=== PATIENT | female | born 1965 | race Asian ===

== ENCOUNTER 2016-09-01 06:34 | Day surgery (SDC) | payer OTHER ==
[2016-08-27 19:34] VITALS: BMI 19.9
--- NOTE | 2016-09-01 08:09 | HP ---
Admitting History and Physical - Admission Chief Complaint: Elevated tumor markers History of Present Illness: 51 yo Para 0, with abnormal sonogram associated with elevated tumor markers, is Pre op for D&C Hysteroscopy. History Source: Patient Limitations to Obtaining History: No Limitations - Past Medical History ...LMP: 05/31/13 ...: No ...Para: 0 - Past Surgical History Past Surgical History: Yes: None - Smoking History Smoking history: Never smoked - Alcohol/Substance Use Hx Alcohol Use: No History of Substance Use: reports: None - Social History Usual Living Arrangement: Yes: Alone History of Recent Travel: No Home Medications - Allergies Allergies/Adverse Reactions: Allergies Allergy/AdvReac Type Severity Reaction Status Date / Time No Known Allergies Allergy Verified 09/01/16 07:23 - Home Medications Home Medications: Ambulatory Orders Cholecalciferol (Vitamin D3) [Vitamin D3] 2,000 unit PO DAILY 08/27/16 Multivit-Min/Iron Fum/Folic AC [Jxvza-Ytvraau-Ujrjgdxw Tablet] 1 each PO DAILY 08/27/16 Family Disease History - Family Disease History Family History: Unremarkable Review of Systems - Review of Systems Constitutional: reports: No Symptoms Eyes: reports: No Symptoms HENT: reports: No Symptoms Neck: reports: No Symptoms Cardiovascular: reports: No Symptoms Respiratory: reports: No Symptoms Gastrointestinal: reports: No Symptoms Genitourinary: reports: No Symptoms Breasts: reports: No Symptoms Reported Musculoskeletal: reports: No Symptoms Integumentary: reports: No Symptoms Neurological: reports: No Symptoms Endocrine: reports: No Symptoms Hematology/Lymphatic: reports: No Symptoms Psychiatric: reports: No Symptoms Pain Intensity: 0 Physical Examination Vital Signs: Vital Signs Temperature 97.4 F L 09/01/16 07:21 Pulse Rate 73 09/01/16 07:21 Respiratory Rate 18 09/01/16 07:21 Blood Pressure 145/93 09/01/16 07:21 O2 Sat by Pulse Oximetry (%) 100 09/01/16 07:22 Constitutional: Yes: Well Nourished Eyes: Yes: Conjunctiva Clear HENT: Yes: Atraumatic Neck: Yes: Supple, Trachea Midline Cardiovascular: Yes: Regular Rate and Rhythm Respiratory: Yes: Regular, CTA Bilaterally Gastrointestinal: Yes: Normal Bowel Sounds ...Rectal Exam: Yes: WNL Renal/: Yes: WNL Breast(s): Yes: WNL Musculoskeletal: Yes: WNL Neurological: Yes: Alert, Oriented ...Motor Strength: WNL Psychiatric: Yes: Alert, Oriented Problem List - Problems (1) Screening for malignant neoplasm Code(s): Z12.9 - ENCOUNTER FOR SCREENING FOR MALIGNANT NEOPLASM, SITE UNSP Assessment/Plan Abnormal sonogram Elevated tumor markers R/O endometrial Polyp R/O endometrial carcinoma Pre op for D&C Hysteroscopy Consent signed Anesthesia to see patient
--- NOTE | 2016-09-01 08:10 | OP ---
Operative Note - Note: Operative Date: 09/01/16 Pre-Operative Diagnosis: Endometrial polyp Operation: D&C Hysteroscopy Findings: No mass Post-Operative Diagnosis: Same as Pre-op Surgeon: rOly Engel Anesthesia: General Estimated Blood Loss (mls): 5 Operative Report Dictated: Yes
[2016-09-01] MEDS ORDERED: DEXAMETHASONE SOD PHOSPHATE 4 MG/1 ML VIAL ONE (08:13)
[2016-09-01] MEDS ORDERED: KETOROLAC TROMETHAMINE 30 MG/1 ML VIAL ONE (08:13)
[2016-09-01] MEDS ORDERED: ONDANSETRON 4 MG/2 ML VIAL ONE (08:13)
[2016-09-01] MEDS ORDERED: PROPOFOL 20 ML ONE (08:14)
[2016-09-01] MEDS ORDERED: MIDAZOLAM HCL 2 MG/2 ML SINGLE DOSE VIAL ONE ×2 (08:14)
[2016-09-01] MEDS ORDERED: oxyCODONE HCL 5 MG TABLET PO PRN (08:57)
[2016-09-01] MEDS ORDERED: ONDANSETRON 4 MG/2 ML VIAL IVPUSH PRN (08:57)
[2016-09-01] MEDS ORDERED: PROMETHAZINE HCL 25 MG/1 ML VIAL IVPUSH PRN (08:57)
[2016-09-01 09:46] VITALS: TEMP 97.8
[2016-09-01 12:14] VITALS: BP 137/79; PULSE 70
--- NOTE | 2016-09-02 08:33 | OP ---
DATE OF OPERATION: 09/01/2016 PREOPERATIVE DIAGNOSIS: Abnormal sonogram, elevated tumor markers, rule out endometrial polyp, rule out endometrial carcinoma. POSTOPERATIVE DIAGNOSIS: Rule out endometrial polyp. SURGEON: Orly Engel MD ANESTHESIA: General. COMPLICATIONS: None. ESTIMATED BLOOD LOSS: 5 mL. PROCEDURE: Patient was taken to the operating room, where general anesthesia was administered. Patient was then placed in lithotomy position. She was then prepped and draped in proper sterile fashion. A speculum was placed in the vagina. The anterior lip of the cervix was grasped with a single-tooth tenaculum. Then, the uterus was sounded to 2 cm. A 5-mm hysteroscope was then gently introduced into the uterine cavity. The cavity was visualized. There was no polyp noted, no mass. It was unsure whether the endometrial cavity was entered. With the cervix, the scope could not go any further. The cervical os was sequentially dilated with Zafar dilators. A sharp curettage was performed. The instruments were removed. The patient was taken out of lithotomy position. She was taken to PACU in stable condition. PATHOLOGY: Endometrial curettings. ORLY ENGEL M.D. [id number]
--- NOTE | 2016-09-02 14:18 | PATH ---
Surgical Pathology Report Patient Name: GUALBERTO DOWNS [facility]. Rec. #: [id number] /Age/Gender: 1965 (Age: 51) / F Account: [id number] Location: [facility] SURGICAL Taken: 09/01/2016 Received: 09/01/2016 Reported: 09/02/2016 Physicians: Orly Engel M.D. Specimen(s) Received ENDOMETRIAL CURETTINGS Clinical History R/o endometrial polyp Final Diagnosis ENDOMETRIUM, CURETTAGE: NO DEFINITIVE ENDOMETRIAL TISSUE IDENTIFIED. FRAGMENTS OF BENIGN ENDOCERVICAL TISSUE. FRAGMENTS OF BENIGN SQUAMOUS EPITHELIUM. Electronically Signed Andrade Berger M.D. Gross Description Received in formalin labeled "endometrial curettings" is a 0.7 x 0.5 x 0.1 cm aggregate of red-brown soft tissue fragments. The formalin is filtered and the specimen is entirely submitted in one cassette. /09/01/201609/01/2016
== END 2016-09-01 12:00 | disposition home or self-care (01) ==
LOC: JASU-SURG 06:34
PROVIDERS: ATTEND Obstetrics & Gynecology
PROC: 0UDB8ZX Extraction of Endometrium, Via Natural or Artificial Opening Endoscopic, Diagnostic (ICD-10-PCS; principal; 2016-09-01 08:00)
DX: R94.8 Abnormal results of function studies of other organs and systems (principal)
CPT/HCPCS: 84703; 88305-TC; 94760